=== PATIENT | male | born 1955 | race Caucasian/White ===

== ENCOUNTER 2017-08-13 04:07 | Emergency (ER) | payer OTHER ==
[2017-08-13] MEDS ORDERED: NA CHLORIDE 0.9% 1,000 ML ONE ×2 (04:30→06:12)
[2017-08-13] MEDS ORDERED: MORPHINE 4 MG/ML SYR ONE (04:30)
[2017-08-13] MEDS ORDERED: PROMETHAZINE 25 MG/ML VIAL ONE (04:32)
[2017-08-13 05:21] LABS: Absolute Lymphocytes (CBC) 1.2 K/uL (0.7-4.9); Absolute Monocytes 0.5 K/uL (0.1-1.3); Absolute Neutrophil 7.4 K/uL (1.8-8.0); Basophils % 0.5 % (0-1.3); Eosinophils % 1.2 % (0-4.4); Hematocrit 41.1 % (39.6-49.0); Lymphocytes % 13.1 % (15.3-44.8); MCH 30.9 pg (27.0-35.0); MCV 92.8 fL (80-100); MPV 9.6 fL (7.6-11.3); Monocytes % 5.1 % (3.3-12.3); RBC Red Blood Cell Count 4.43 M/uL (4.33-5.43)
[2017-08-13 05:34] LABS: Urine Blood 3+ (NEG); Urine Glucose NEGATIVE (NEG); Urine Protein 1+ (NEG); Urine Specific Gravity 1.015 (1.005-1.030)
[2017-08-13 05:40] LABS: Potassium 4.6 mEq/L (3.6-5.0)
[2017-08-13 05:46] LABS: Urine Bacteria <20 /HPF (NONE SEEN); Urine Culture Reflex Order NOT NEEDED; Urine RBC TNTC /HPF (NONE SEEN)
[2017-08-13 05:47] LABS: Bilirubin Direct 0.1 mg/dL (0-0.2); Bilirubin Total 0.8 mg/dL (0.3-1.2); Protein, Total 6.9 g/dL (6.0-8.3)
--- NOTE | 2017-08-13 06:05 | ER ---
Nurse's Notes [facility] Name: Noah Ramos Age: 62 yrs Sex: Male : 1955 Arrival Date: 08/13/2017 Time: 04:11 Bed 19 Private MD: Diagnosis: Abdominal tenderness;Hydronephrosis with renal and ureteral calculous obstruction-2mm left uvj Presentation: 08/13 04:20 Presenting complaint: Patient states: he woke up around midnight with L low back pain aa1 which then began to radiate to his LLQ. Pt also reports he vomited [employer]ER[employer]. Transition of care: patient was not received from another setting of care. Onset of symptoms was August 13, 2017. Initial Sepsis Screen: Does the patient meet any 2 criteria? No. Patient's initial sepsis screen is negative. Does the patient have a suspected source of infection? Yes: Acute abdominal pain. Care prior to arrival: None. 04:20 Method Of Arrival: Ambulatory aa1 04:20 Acuity: CARLY 3 aa1 Historical: - Allergies: 04:23 PENICILLINS; aa1 04:23 SHELLFISH; aa1 - Home Meds: 04:23 Metoprolol Tartrate Oral 2 times per day [Active]; aa1 - PMHx: 04:23 tachycardia; aa1 - PSHx: 04:23 hip sx; aa1 - Immunization history:: Flu vaccine is not up to date. - Social history:: Smoking status: Patient/guardian denies using tobacco. - Family history:: not pertinent. Screenin:57 Abuse screen: Denies threats or abuse. Denies injuries from another. Nutritional bp screening: No deficits noted. Tuberculosis screening: No symptoms or risk factors identified. Fall Risk None identified. Assessment: 04:30 General: Appears in no apparent distress. uncomfortable, Behavior is calm, cooperative, bp appropriate for age. Pain: Complains of pain in low back area. Neuro: Level of Consciousness is awake, alert, obeys commands, Oriented to person, place, time, situation, Appropriate for age. Cardiovascular: No deficits noted. Respiratory: Airway is patent Respiratory effort is even, unlabored, Respiratory pattern is regular, symmetrical. GI: Bowel sounds present X 4 quads. Abd is soft X 4 quads. : No signs and/or symptoms were reported regarding the genitourinary system. EENT: No deficits noted. Derm: No deficits noted. Musculoskeletal: Circulation, motion, and sensation intact. Range of motion: intact in all extremities. 06:26 Reassessment: D/C ON HOLD FOR IVF COMPLETION, PT AFFIRMS RELIEF OF S/S. bp 06:56 Reassessment: PT D/C HOME AMBULATORY WITH FAMILY, DX WITH HYDRONEPHROSIS AND RENAL bp CALCULUS. 07:12 Reassessment: Patient appears in no apparent distress at this time. Patient and/or ch family updated on plan of care and expected duration. Pain level reassessed. Patient is alert, oriented x 3, equal unlabored respirations, skin warm/dry/pink. Patient states feeling better. Patient states symptoms have improved. Vital Signs: 04:23 BP 141 / 80; Pulse 44; Resp 18; Temp 97.6; Pulse Ox 100% on R/A; Weight 117.93 kg; aa1 Height 6 ft. 4 in. (193.04 cm); Pain 9/10; 04:30 Pulse 63; Resp 14; Pulse Ox 98% ; bp 05:33 BP 133 / 77; Pulse 55; Resp 14; Pulse Ox 96% ; bp 06:26 BP 138 / 64; Pulse 54; Resp 16; Pulse Ox 99% ; bp 07:12 BP 119 / 76; Pulse 64; Resp 15; Temp 98.3; Pulse Ox 99% on R/A; Pain 2/10; ch 04:23 Body Mass Index 31.65 (117.93 kg, 193.04 cm) aa1 ED Course: 04:11 Patient arrived in ED. es 04:15 Jean Pierre Tang, RN is Primary Nurse. bp 04:21 Triage completed. aa1 04:23 Arm band placed on right wrist. Patient placed in an exam room, on a stretcher. aa1 04:24 Leonid Herrera MD is Attending Physician. dilcia 04:56 Inserted saline lock: 20 gauge in right forearm, using aseptic technique. Blood bp collected. 04:57 Patient has correct armband on for positive identification. Bed in low position. Call bp light in reach. Side rails up X2. Adult w/ patient. 05:[address] nj 05:12 CT completed. Patient moved back from CT. nj 05:15 CT Stone Protocol In Process Unspecified. EDMS 06:06 Sugar Arroyo MD is Referral Physician. dilcia 06:56 No provider procedures requiring assistance completed. IV discontinued, intact, bp bleeding controlled, No redness/swelling at site. Pressure dressing applied. 07:12 Pulse ox on. NIBP on. ch Administered Medications: 04:55 Drug: morphine 4 mg Route: IVP; Site: right forearm; bp 04:56 Follow up: Response: No adverse reaction; Pain is decreased bp 04:55 CANCELLED (Other Intervention Used): Zofran 4 mg IVP once; over 2 minutes bp 04:55 Drug: NS 0.9% 1000 ml Route: IV; Rate: 1000 ml; Site: right forearm; bp 06:24 Follow up: IV Status: Completed infusion bp 04:56 Drug: Promethazine 12.5 mg Route: IVP; Site: right forearm; bp 04:56 Follow up: Response: Pain is decreased bp 06:20 Drug: Rocephin - (cefTRIAXone) 1 grams Route: IVPB; Infused Over: 30 mins; Site: right bp antecubital; 06:24 Follow up: IV Status: Completed infusion bp 06:20 Drug: TORadol 30 mg Route: IVP; Site: right antecubital; bp 06:25 Follow up: Response: Pain is decreased bp 06:20 Drug: Flomax 0.4 mg Route: PO; bp 06:25 Follow up: Response: No adverse reaction bp 06:20 Drug: NS 0.9% 1000 ml Route: IV; Rate: 1 bolus; Site: right antecubital; bp 06:56 Follow up: IV Status: Completed infusion; IV Intake: 1000ml bp 06:20 Drug: Cipro 500 mg Route: PO; bp 06:25 Follow up: Response: No adverse reaction bp Intake: 06:56 IV: 1000ml; Total: 1000ml. bp Outcome: 06:05 Discharge ordered by . dilcia 06:56 Discharged to home ambulatory, with family. bp 06:56 Condition: stable 06:56 Discharge instructions given to patient, Instructed on discharge instructions, follow up and referral plans. medication usage, Demonstrated understanding of instructions, follow-up care, medications, Prescriptions given X 4. 07:13 Patient left the ED. Signatures: Dispatcher [employer] Lexie Colon RN RN ch Kern, Alissa, RN RN aa1 Javier, Leonid, MD Trena Liu cha, Nathan nj Peltier, Brian, RN RN bp
--- NOTE | 2017-08-13 06:05 | EDPHYS ---
Physician Documentation [facility] Name: Noah Ramos Age: 62 yrs Sex: Male : 1955 Arrival Date: 08/13/2017 Time: 04:11 Bed 19 Private MD: ED Physician Leonid Herrera HPI: 08/13 05:47 This 62 yrs old Male presents to ER via Ambulatory with complaints of dilcia Abdominal Pain, Back Pain, Vomiting. 05:47 The patient presents with pain that is acute, with no known mechanism of injury. The dilcia symptoms are located in the low back, left low back and left mid back. Onset: The symptoms/episode began/occurred just prior to arrival. The pain radiates to the left low back and left mid back. Associated signs and symptoms: Pertinent positives: abdominal pain, nausea, vomiting. The problem was sustained from unknown cause. Modifying factors: The patient symptoms are alleviated by nothing, the patient symptoms are aggravated by nothing. Severity of symptoms: At their worst the symptoms were moderate, in the emergency department the symptoms are unchanged. The patient has not experienced similar symptoms in the past. Historical: - Allergies: 04:23 PENICILLINS; aa1 04:23 SHELLFISH; aa1 - Home Meds: 04:23 Metoprolol Tartrate Oral 2 times per day [Active]; aa1 - PMHx: 04:23 tachycardia; aa1 - PSHx: 04:23 hip sx; aa1 - Immunization history:: Flu vaccine is not up to date. - Social history:: Smoking status: Patient/guardian denies using tobacco. - Family history:: not pertinent. ROS: 05:47 Constitutional: Negative for fever, chills, and weight loss, Eyes: Negative for injury, dilcia pain, redness, and discharge, ENT: Negative for injury, pain, and discharge, Neck: Negative for injury, pain, and swelling, Cardiovascular: Negative for chest pain, palpitations, and edema, Respiratory: Negative for shortness of breath, cough, wheezing, and pleuritic chest pain, : Negative for injury, bleeding, discharge, and swelling, MS/Extremity: Negative for injury and deformity, Skin: Negative for injury, rash, and discoloration, Neuro: Negative for headache, weakness, numbness, tingling, and seizure, Psych: Negative for depression, anxiety, suicide ideation, homicidal ideation, and hallucinations, Allergy/Immunology: Negative for hives, rash, and allergies, Endocrine: Negative for neck swelling, polydipsia, polyuria, polyphagia, and marked weight changes, Hematologic/Lymphatic: Negative for swollen nodes, abnormal bleeding, and unusual bruising. 05:47 Abdomen/GI: Positive for abdominal pain, nausea, vomiting, abdominal cramps, of the posterior aspect of left lateral abdomen, left upper quadrant and left lower quadrant. Exam: 05:47 Constitutional: This is a well developed, well nourished patient who is awake, alert, dilcia and in no acute distress. Head/Face: Normocephalic, atraumatic. Eyes: Pupils equal round and reactive to light, extra-ocular motions intact. Lids and lashes normal. Conjunctiva and sclera are non-icteric and not injected. Cornea within normal limits. Periorbital areas with no swelling, redness, or edema. ENT: Nares patent. No nasal discharge, no septal abnormalities noted. Tympanic membranes are normal and external auditory canals are clear. Oropharynx with no redness, swelling, or masses, exudates, or evidence of obstruction, uvula midline. Mucous membranes moist. Neck: Trachea midline, no thyromegaly or masses palpated, and no cervical lymphadenopathy. Supple, full range of motion without nuchal rigidity, or vertebral point tenderness. No Meningismus. Chest/axilla: Normal chest wall appearance and motion. Nontender with no deformity. No lesions are appreciated. Cardiovascular: Regular rate and rhythm with a normal S1 and S2. No gallops, murmurs, or rubs. Normal PMI, no JVD. No pulse deficits. Respiratory: Lungs have equal breath sounds bilaterally, clear to auscultation and percussion. No rales, rhonchi or wheezes noted. No increased work of breathing, no retractions or nasal flaring. Male : Normal genitalia with no discharge or lesions. Skin: Warm, dry with normal turgor. Normal color with no rashes, no lesions, and no evidence of cellulitis. MS/ Extremity: Pulses equal, no cyanosis. Neurovascular intact. Full, normal range of motion. Neuro: Awake and alert, GCS 15, oriented to person, place, time, and situation. Cranial nerves II-XII grossly intact. Motor strength 5/5 in all extremities. Sensory grossly intact. Cerebellar exam normal. Normal gait. Psych: Awake, alert, with orientation to person, place and time. Behavior, mood, and affect are within normal limits. 05:47 Abdomen/GI: Inspection: abdomen appears normal, Bowel sounds: normal, Palpation: mild abdominal tenderness, moderate abdominal tenderness, in the posterior aspect of left lateral abdomen, left upper quadrant and left lower quadrant, Liver: no appreciated palpable abnormalities, Hernia: not appreciated. Vital Signs: 04:23 BP 141 / 80; Pulse 44; Resp 18; Temp 97.6; Pulse Ox 100% on R/A; Weight 117.93 kg; aa1 Height 6 ft. 4 in. (193.04 cm); Pain 9/10; 04:30 Pulse 63; Resp 14; Pulse Ox 98% ; bp 05:33 BP 133 / 77; Pulse 55; Resp 14; Pulse Ox 96% ; bp 06:26 BP 138 / 64; Pulse 54; Resp 16; Pulse Ox 99% ; bp 07:12 BP 119 / 76; Pulse 64; Resp 15; Temp 98.3; Pulse Ox 99% on R/A; Pain 2/10; ch 04:23 Body Mass Index 31.65 (117.93 kg, 193.04 cm) aa1 MDM: 04:24 Patient medically screened. [facility] 05:49 Data reviewed: vital signs, nurses notes, lab test result(s), EKG, radiologic studies, [facility] CT scan, plain films. 08/13 04:24 Order name: Amylase, Serum; Complete Time: 05:49 08/13 04:24 Order name: Basic Metabolic Panel; Complete Time: 05:49 08/13 04:24 Order name: CBC with Diff; Complete Time: 05:49 08/13 04:24 Order name: Creatinine for Radiology; Complete Time: 05:49 08/13 04:24 Order name: Hepatic Function; Complete Time: 05:49 08/13 04:24 Order name: Lipase; Complete Time: 05:49 08/13 04:24 Order name: Urine Microscopic Only; Complete Time: 05:49 08/13 04:24 Order name: CT Stone Protocol [facility] 08/13 05:21 Order name: Urine Dipstick--Ancillary (enter results); Complete Time: 05:49 08/13 04:24 Order name: IV Saline Lock; Complete Time: 04:57 aa08/13 04:24 Order name: Labs collected and sent; Complete Time: 04:57 aa08/13 04:24 Order name: Urine Dipstick-Ancillary (obtain specimen); Complete Time: 04:57 aa Administered Medications: 04:55 Drug: morphine 4 mg Route: IVP; Site: right forearm; bp 04:56 Follow up: Response: No adverse reaction; Pain is decreased bp 04:55 CANCELLED (Other Intervention Used): Zofran 4 mg IVP once; over 2 minutes bp 04:55 Drug: NS 0.9% 1000 ml Route: IV; Rate: 1000 ml; Site: right forearm; bp 06:24 Follow up: IV Status: Completed infusion bp 04:56 Drug: Promethazine 12.5 mg Route: IVP; Site: right forearm; bp 04:56 Follow up: Response: Pain is decreased bp 06:20 Drug: Rocephin - (cefTRIAXone) 1 grams Route: IVPB; Infused Over: 30 mins; Site: right bp antecubital; 06:24 Follow up: IV Status: Completed infusion bp 06:20 Drug: TORadol 30 mg Route: IVP; Site: right antecubital; bp 06:25 Follow up: Response: Pain is decreased bp 06:20 Drug: Flomax 0.4 mg Route: PO; bp 06:25 Follow up: Response: No adverse reaction bp 06:20 Drug: NS 0.9% 1000 ml Route: IV; Rate: 1 bolus; Site: right antecubital; bp 06:56 Follow up: IV Status: Completed infusion; IV Intake: 1000ml bp 06:20 Drug: Cipro 500 mg Route: PO; bp 06:25 Follow up: Response: No adverse reaction bp Disposition: 08/13/17 06:05 Discharged to Home. Impression: Abdominal tenderness, Hydronephrosis with renal and ureteral calculous obstruction - 2mm left uvj. - Condition is Stable. - Discharge Instructions: Abdominal Pain, Adult, Kidney Stones, Kidney Stones, [id number], Abdominal Pain, Adult, [id number], Hydronephrosis. - Prescriptions for Tylenol- Codeine #3 300-30 mg Oral Tablet - take 2 tablet by ORAL route every 6 hours As needed; 30 tablet. Zofran 4 mg Oral Tablet - take 1 tablet by ORAL route every 12 hours As needed; 20 tablet. Flomax 0.4 mg Oral Capsule, Sust. Release 24 hr - take 1 capsule by ORAL route once daily 1/2 hour following the same meal each day; 30 capsule. Cipro 500 mg Oral Tablet - take 1 tablet by ORAL route every 12 hours for 7 days; 14 tablet. - Medication Reconciliation Form, Thank You Letter, Antibiotic Education, Prescription Opioid Use form. - Follow up: Private Physician; When: 2 - 3 days; Reason: Recheck today's complaints, Continuance of care, Re-evaluation by your physician. Follow up: Sugar Arroyo MD; When: 2 - 3 days; Reason: Recheck today's complaints, Re-evaluation by your physician. - Problem is new. - Symptoms have improved. Signatures: Dispatcher [employer] EDMS Lexie Covarrubias RN RN Diana Carson RN RN Leonid Byers MD MD cha Peltier, Brian RN RN bp Corrections: (The following items were deleted from the chart) 04:55 04:25 Zofran 4 mg IVP once; over 2 minutes ordered. aa1 bp 06:06 06:05 08/13/2017 06:05 Discharged to Home. Impression: Abdominal tenderness; dilcia Hydronephrosis with renal and ureteral calculous obstruction - 2mm left uvj. Condition is Stable. Discharge Instructions: Abdominal Pain, Adult, Kidney Stones, Kidney Stones, [id number], Abdominal Pain, Adult, [id number], Hydronephrosis. Prescriptions for Tylenol-Codeine #3 300-30 mg Oral Tablet - take 2 tablet by ORAL route every 6 hours As needed; 30 tablet, Zofran 4 mg Oral Tablet - take 1 tablet by ORAL route every 12 hours As needed; 20 tablet, Flomax 0.4 mg Oral Capsule, Sust. Release 24 hr - take 1 capsule by ORAL route once daily 1/2 hour following the same meal each day; 30 capsule, Cipro 500 mg Oral Tablet - take 1 tablet by ORAL route every 12 hours for 7 days; 14 tablet. and Forms are Medication Reconciliation Form, Thank You Letter, Antibiotic Education, Prescription Opioid Use. Follow up: Private Physician; When: 2 - 3 days; Reason: Recheck today's complaints, Continuance of care, Re-evaluation by your physician. Problem is new. Symptoms have improved. dilcia 07:13 06:06 08/13/2017 06:05 Discharged to Home. Impression: Abdominal tenderness; ch Hydronephrosis with renal and ureteral calculous obstruction - 2mm left uvj. Condition is Stable. Discharge Instructions: Abdominal Pain, Adult, Kidney Stones, Kidney Stones, [id number], Abdominal Pain, Adult, [id number], Hydronephrosis. Prescriptions for Tylenol-Codeine #3 300-30 mg Oral Tablet - take 2 tablet by ORAL route every 6 hours As needed; 30 tablet, Zofran 4 mg Oral Tablet - take 1 tablet by ORAL route every 12 hours As needed; 20 tablet, Flomax 0.4 mg Oral Capsule, Sust. Release 24 hr - take 1 capsule by ORAL route once daily 1/2 hour following the same meal each day; 30 capsule, Cipro 500 mg Oral Tablet - take 1 tablet by ORAL route every 12 hours for 7 days; 14 tablet. and Forms are Medication Reconciliation Form, Thank You Letter, Antibiotic Education, Prescription Opioid Use. Follow up: Private Physician; When: 2 - 3 days; Reason: Recheck today's complaints, Continuance of care, Re-evaluation by your physician. Follow up: Sugar Arroyo; When: 2 - 3 days; Reason: Recheck today's complaints, Re-evaluation by your physician. Problem is new. Symptoms have improved. dilcia
[2017-08-13] MEDS ORDERED: CEFTRIAXONE 1000 MG/VIAL ONE (06:12)
[2017-08-13] MEDS ORDERED: TAMSULOSIN 0.4 MG SR CAP ONE (06:12)
[2017-08-13] MEDS ORDERED: CIPROFLOXACIN HCL 500 MG TAB ONE (06:12)
[2017-08-13] MEDS ORDERED: KETOROLAC 30 MG/ML INJ ONE (06:12)
--- NOTE | 2017-08-13 10:23 | RAD REPORT ---
EXAM DESCRIPTION: CT - Stone Protocol - 08/13/2017 6:41 am CLINICAL HISTORY: Abdominal pain, back pain A preliminary written report was provided at the time of the study, and the report was reviewed prio r to final dictation. COMPARISON: None. TECHNIQUE: Axial 5 mm thick images were obtained without oral or IV contrast. The [id number] span s the entirety of the system partially obscuring uppermost abdomen and lung bases. All CT scans are performed using dose optimization technique as appropriate and may include automated exposure control or mA/KV adjustment according to patient size. FINDINGS: Mild left-sided hydronephrosis secondary to a 3 millimeter UVJ stone. Patient has 6 millim eter and 9 millimeter calcifications in the lower pole left kidney. Mild perinephric stranding on the left. No right-sided calculi. No suspicious renal masses. Isodense masses and pyelonephritis are not excluded on a stone protocol CT scan. Urinary bladder is fully contracted limiting assessment. No bl adder calculi seen. There is some mild congestion or edema adjacent to the bladder and cystitis could be present. Imaged portions of the liver, spleen and pancreas show no suspicious findings on non-contrast imaging . No gallbladder or biliary tree abnormality identified. No adrenal abnormality. There is an incident al 2.5 centimeter cyst in the upper right lobe. No suspicious bowel findings. No mass or bulky lymphadenopathy. Bilateral fat filled inguinal hernias are present. A small fat only umbilical hernia is present. No free air, free fluid or inflammatory stranding. No significant bony abnormality. IMPRESSION: Mild left-sided hydronephrosis secondary to a 3 millimeter UVJ stone. 2 left-sided 6 mm and 9 mm calcifications are present nonobstructive. Isodense masses and pyelonephritis are not excluded on stone protocol technique.
== END 2017-08-13 07:13 | disposition home or self-care (01) ==
LOC: ER 04:07
DX: N13.2 Hydronephrosis with renal and ureteral calculous obstruction (principal); Z88.0 Allergy status to penicillin; Z91.013 Allergy to seafood
CPT/HCPCS: 36415; 74176; 76377; 80048; 80076; 81003; 81015; 82150; 83690; 85025; 99284; J2550; J7030